=== PATIENT | female | born 1950 | race Caucasian/White ===

== ENCOUNTER 2017-02-28 15:48 | Inpatient (IN) | payer MEDICARE ==
[~2017-02-28] VITALS: Ht 152.4 cm; Wt 50.0 kg
[2017-02-28] VITALS (7 sets, daily range): BP systolic 112–122; BP diastolic 59–77; PULSE 84–98; RESP 12–18; TEMP 98.3–99; O2SAT 97–99
[~2017-02-28 15:48] MED LIST: LISI-360 PO; MECL25CH PO
[2017-02-28] MEDS ORDERED: SODIUM CHLOR 0.9% 1000 ML INJ 1,000 ML IV SCH (16:24)
[2017-02-28] MEDS ORDERED: PANTOPRAZOLE SODIUM 40 MG VIAL IVP ONE (16:30)
[2017-02-28] MEDS ORDERED: SODIUM CHLORIDE 0.9% FLUSH 10 ML FLUSH IVF PRN (16:30)
[2017-02-28] MEDS ORDERED: ONDANSETRON HCL 4 MG/2 ML VIAL IVP ONE (16:30)
[2017-02-28 16:42] LABS: AUTOMATED NEUTROPHIL # 9.8 TH/MM3 (1.8-7.7); BASOPHIL # 0.1 TH/MM3 (0-0.2); BASOPHIL % 0.7 % (0.0-2.0); EOSINOPHIL % 0.3 % (0.0-4.0); HEMATOCRIT 37.1 % (35.0-46.0); HEMO FLAGS DIFF FINAL; LYMPH % 19.7 % (9.0-44.0); LYMPHOCYTE # 2.6 TH/MM3 (1.0-4.8); MEAN CELL VOLUME 90.9 FL (80.0-100.0); MEAN CORPUSCULAR HEMOGLOBIN 29.8 PG (27.0-34.0); MEAN CORPUSCULAR HGB CONC 32.8 % (32.0-36.0); MONO % 4.5 % (0.0-8.0); NEUT % 74.8 % (16.0-70.0); PLATELET COUNT 284 TH/MM3 (150-450); RED BLOOD COUNT 4.08 MIL/MM3 (4.00-5.30); RED CELL DISTRIBUTION WIDTH 12.3 % (11.6-17.2); WHITE BLOOD COUNT 13.1 TH/MM3 (4.0-11.0)
[2017-02-28 16:50] LABS: CHLORIDE 104 MEQ/L (98-107); POTASSIUM 3.9 MEQ/L (3.5-5.1); SODIUM (NA) 140 MEQ/L (136-145)
[2017-02-28 16:54] LABS: ANION GAP 8 MEQ/L (5-15); BICARBONATE 28.1 MEQ/L (21.0-32.0); BLOOD UREA NITROGEN 37 MG/DL (7-18); PROTHROMBIN TIME - PATIENT 10.8 SEC (9.8-11.6)
[2017-02-28 16:57] LABS: ALT (GPT) 27 U/L (10-53); AST (GOT) 16 U/L (15-37); GLOMERULAR FILTRATION RATE 93 ML/MIN (>89)
[2017-02-28 16:58] LABS: TOTAL BILIRUBIN ADULT 0.2 MG/DL (0.2-1.0)
[2017-02-28 17:00] LABS: ALKALINE PHOSPHATASE 69 U/L (45-117)
[2017-02-28 17:03] LABS: BLOOD, URINE NEG (NEG); GLUCOSE,URINE NEG (NEG); KETONE, URINE NEG (NEG); NITRITE,URINE NEG (NEG); PH, URINE 5.5 (5.0-8.5)
[2017-02-28] MEDS ORDERED: LEVO50TA4 PO (17:19)
[2017-02-28] MEDS ORDERED: ASPI81CH CHEW (17:19)
[2017-02-28] MEDS ORDERED: LOSA25TA PO (17:19)
[2017-02-28] MEDS ORDERED: SIMV20TA PO (17:19)
[2017-02-28 17:22] LABS: COMMENT (UR) CULT NOT INDICATED; CULTURE IF INDICATED CULT NOT INDICATED; METHOD OF COLLECTION CLEAN CATCH; SQUAMOUS EPITHELIAL CELL URINE 0-5 /hpf (0-5); URINE COLOR YELLOW (YELLW/STRAW)
[2017-02-28 17:23] LABS: COMMENT2 (UR) MUCOUS PRESENT
[2017-02-28] MEDS ORDERED: IOHEXOL 350 MG/ML 10 ML VIAL (for RAD DIAG) IVCONTRAST ONE (17:29)
--- NOTE | 2017-02-28 17:43 | PD ---
HPI Chief Complaint: GI Complaint Time Seen by Provider: 16:17 Travel History International Travel<30 days: No Contact w/Intl Traveler<30days: [place] Traveled to: [place] Traveled to known affect area: No History of Present Illness HPI 66 yo F c/o epigastric abdominal pain and hematemesis. Vomiting x 3 this morning , clots of blood. + Hx gastric ulcers however has denies hx endoscopy. + Hx colonoscopy, reported to be normal. No bloody stool. Dizziness reported. No cp/ sob. + baby asa used daily. no anticoagulant otherwise. PFSH Past Medical History Hx Anticoagulant Therapy: No Cardiovascular Problems: Yes (HTN, CHOL) High Cholesterol: Yes Cerebrovascular Accident: Yes Hypertension: Yes Ulcer: Yes Tetanus Vaccination: < 5 Years Influenza Vaccination: Yes ?: Not Past Surgical History Hysterectomy: Yes Social History Alcohol Use: No Tobacco Use: No Substance Use: No Allergies-Medications (Allergen,Severity, Reaction): Coded Allergies: No Known Allergies (Unverified , 02/28/17) Reported Meds & Prescriptions Reported Meds & Active Scripts Active Reported Aspirin 81 Mg Chew 81 Mg CHEW DAILY Simvastatin 20 Mg Tab 20 Mg PO HS Levothyroxine (Levothyroxine Sodium) 50 Mcg Tab 50 Mcg PO DAILY Losartan (Losartan Potassium) 25 Mg Tab 12.5 Mg PO DAILY Review of Systems Except as stated in HPI: all other systems reviewed are Neg General / Constitutional: No: Fever HENT: No: Headaches, Vertigo Physical Exam Narrative GENERAL: 66 yo F, WNWD, NAD RECTAL: Guaiac negative clear mucous. No hemorrhoids. Hard stool in vault. SKIN: Warm and dry. HEAD: Atraumatic. Normocephalic. EYES: Pupils equal and round. No scleral icterus. No injection or drainage. ENT: No nasal bleeding or discharge. Mucous membranes pink and moist. NECK: Trachea midline. No JVD. CARDIOVASCULAR: Regular rate and rhythm. RESPIRATORY: No accessory muscle use. Clear to auscultation. Breath sounds equal bilaterally. GASTROINTESTINAL: Abdomen soft, non-tender, nondistended. Hepatic and splenic margins not palpable. MUSCULOSKELETAL: Extremities without clubbing, cyanosis, or edema. No obvious deformities. NEUROLOGICAL: Awake and alert. No obvious cranial nerve deficits. Motor grossly within normal limits. Five out of 5 muscle strength in the arms and legs. Normal speech. PSYCHIATRIC: Appropriate mood and affect; insight and judgment normal. Data Data Last Documented VS Vital Signs Date Time Temp Pulse Resp B/P (MAP) Pulse Ox O2 Delivery O2 Flow Rate FiO2 02/28/17 16:40 97 Room Air 02/28/17 15:56 98.3 98 16 122/70 (87) VS reviewed Orders Orders Complete Blood Count With Diff (02/28/17 16:24) Comprehensive Metabolic Panel (02/28/17 16:24) Lipase (02/28/17 16:24) Prothrombin Time / Inr (Pt) (02/28/17 16:24) Act Partial Throm Time (Ptt) (02/28/17 16:24) Urinalysis - C+S If Indicated (02/28/17 16:24) Type And Screen (02/28/17 16:24) Ecg Monitoring (02/28/17 16:24) Iv Access Insert/Monitor (02/28/17 16:24) Oximetry (02/28/17 16:24) Ondansetron Inj (Zofran Inj) (02/28/17 16:30) Pantoprazole Inj (Protonix Inj) (02/28/17 16:30) Sodium Chlor 0.9% 1000 Ml Inj (Ns 1000 M (02/28/17 16:24) Sodium Chloride 0.9% Flush (Ns Flush) (02/28/17 16:30) Ct Abd/Pel W Iv Contrast(Rout) (02/28/17 16:24) Iohexol 350 Inj (Omnipaque 350 Inj) (02/28/17 17:29) Admit Order (Ed Use Only) (02/28/17 ) [employer] / Telemetry PANCHITO.Q8H (02/28/17 17:51) Activity Oob With Assistance (02/28/17 17:51) Admit To Inpatient (02/28/17 ) Vital Signs (Adult) PANCHITO.Q4H (02/28/17 17:53) Activity Oob With Assistance (02/28/17 17:53) Supervisor [employer] / Telemetry PANCHITO.Q8H (02/28/17 17:53) Diet Npo (02/28/17 Dinner) Sodium Chlor 0.45% 1000 Ml Inj (1/2 Ns 1 (02/28/17 17:53) Sodium Chloride 0.9% Flush (Ns Flush) (02/28/17 18:00) Sodium Chloride 0.9% Flush (Ns Flush) (02/28/17 21:00) Inpatient Certification (02/28/17 ) Complete Blood Count With Diff (03/01/17 06:00) Scd&Teds Bilateral/Knee High PANCHITO.QSHIFT (02/28/17 17:56) Consult Gastroenterology (02/28/17 ) Labs Laboratory Tests Test 02/28/17 16:10 02/28/17 16:45 White Blood Count 13.1 TH/MM3 Red Blood Count 4.08 MIL/MM3 Hemoglobin 12.2 GM/DL Hematocrit 37.1 % Mean Corpuscular Volume 90.9 FL Mean Corpuscular Hemoglobin 29.8 PG Mean Corpuscular Hemoglobin Concent 32.8 % Red Cell Distribution Width 12.3 % Platelet Count 284 TH/MM3 Mean Platelet Volume 8.0 FL Neutrophils (%) (Auto) 74.8 % Lymphocytes (%) (Auto) 19.7 % Monocytes (%) (Auto) 4.5 % Eosinophils (%) (Auto) 0.3 % Basophils (%) (Auto) 0.7 % Neutrophils # (Auto) 9.8 TH/MM3 Lymphocytes # (Auto) 2.6 TH/MM3 Monocytes # (Auto) 0.6 TH/MM3 Eosinophils # (Auto) 0.0 TH/MM3 Basophils # (Auto) 0.1 TH/MM3 CBC Comment DIFF FINAL Differential Comment Prothrombin Time 10.8 SEC Prothromb Time International Ratio 1.0 RATIO Activated Partial Thromboplast Time 21.0 SEC Blood Urea Nitrogen 37 MG/DL Creatinine 0.64 MG/DL Random Glucose 136 MG/DL Total Protein 6.3 GM/DL Albumin 3.2 GM/DL Calcium Level 7.8 MG/DL Alkaline Phosphatase 69 U/L Aspartate Amino Transf (AST/SGOT) 16 U/L Alanine Aminotransferase (ALT/SGPT) 27 U/L Total Bilirubin 0.2 MG/DL Sodium Level 140 MEQ/L Potassium Level 3.9 MEQ/L Chloride Level 104 MEQ/L Carbon Dioxide Level 28.1 MEQ/L Anion Gap 8 MEQ/L Estimat Glomerular Filtration Rate 93 ML/MIN Lipase 183 U/L Urine Collection Type CLEAN CATCH Urine Color YELLOW Urine Turbidity CLEAR Urine pH 5.5 Urine Specific [place] 1.026 Urine Protein NEG mg/dL Urine Glucose (UA) NEG mg/dL Urine Ketones NEG mg/dL Urine Occult Blood NEG Urine Nitrite NEG Urine Bilirubin NEG Urine Leukocyte Esterase NEG Urine Squamous Epithelial Cells 0-5 /hpf Urine Amorphous Sediment FEW Microscopic Urinalysis Comment CULT NOT INDICATED Urine Collection Time 1645 [facility] Medical Decision Making Medical Screen Exam Complete: Yes Emergency Medical Condition: Yes Medical Record Reviewed: Yes Differential Diagnosis Gastritis, pancreatitis, appendicitis, acute cholecystitis, ascending cholangitis, AAA, perforated viscous, mesenteric ischemia, hepatitis, cystitis, hydronephrosis/hydroureter/nephroureter calculus, mesenteric adenitis, biliary colic Narrative Course CBC & BMP Diagram 02/28/17 16:10 Total Protein 6.3 L, Albumin 3.2 L, Calcium Level 7.8 L, Alkaline Phosphatase 69 , Aspartate Amino Transf (AST/SGOT) 16, Alanine Aminotransferase (ALT/SGPT) 27, Total Bilirubin 0.2 Lipase 183 UA: no UTI pt hemodynamically stable. BUN/Cr ratio concerning for upper GI bleed. protonix bolus and gtt CT ab / pel: no acute pathology d/w Dr Medina Diagnosis Primary Impression: Hematemesis Qualified Codes: K92.0 - Hematemesis Admitting Information Admitting Physician Requests: Observation Luca Palafox MD Feb 28, 2017 17:43
--- NOTE | 2017-02-28 17:47 | RADRPT ---
EXAM DATE/TIME: 02/28/2017 17:21 [place] COMPARISON: No previous studies available for comparison. INDICATIONS : Epigastric pain and hemoptysis. IV CONTRAST: 85 cc Omnipaque 350 (iohexol) IV ORAL CONTRAST: No oral contrast ingested. RADIATION DOSE: 4.93 CTDIvol (mGy) MEDICAL HISTORY : Cerebrovascular disease. Hypertension. SURGICAL HISTORY : Hysterectomy. ENCOUNTER: Initial ACUITY: 1 day PAIN SCALE: 4/10 LOCATION: upper quadrant TECHNIQUE: Volumetric scanning of the abdomen and pelvis was performed. Using automated exposure control and ad justment of the mA and/or kV according to patient size, radiation dose was kept as low as reasonably achievable to obtain optimal diagnostic quality images. DICOM format image data is available electro nically for review and comparison. FINDINGS: Examination of the lung bases demonstrates no abnormality. No pleural fluid is identified. No pulmona ry nodules are present. The liver and spleen are normal in size and no focal defects are identified. The gallbladder and pancreas are unremarkable. No intrahepatic or extrahepatic ductal dilatation is s een. The adrenal glands are unremarkable. The right kidney is unremarkable. There is a single simple cyst in the left kidney measuring 2.5 cm in the upper pole. Examination of the pelvis demonstrates no evidence of free fluid or pelvic mass. No abnormally enlarg ed inguinal or retroperitoneal lymph nodes are present. The bladder is unremarkable. Examination of t he right lower quadrant demonstrates no abnormality. The appendix is identified and appears normal. Bilateral pars defects are present at L5. CONCLUSION: 1. No evidence of acute abdominal or pelvic process. No masses are identified. 2. Bilateral L5 spondylolysis Jt Borrego MD on February 28, 2017 at 17:42 Board Certified Radiologist. This report was verified electronically.
[2017-02-28] MEDS ORDERED: SODIUM CHLOR 0.45% 1000 ML INJ 1,000 ML IV SCH (17:53)
[2017-02-28] MEDS ORDERED: SODIUM CHLORIDE 0.9% FLUSH 10 ML FLUSH IV FLUSH PRN (18:00)
[2017-02-28] MEDS ORDERED: ONDANSETRON HCL 4 MG/2 ML VIAL IV PUSH PRN (18:45)
--- NOTE | 2017-02-28 18:49 | HHI.HP ---
[facility] Diagnosis Hematemesis; Abdominal Pain Diagnoses: (1) Hematemesis Diagnosis: Principal Chief Complaint: Vomiting blood Travel History International Travel<30 Days: No Contact w/Intl Traveler <30 Da: [place] Traveled to: [place] Traveled to Known Affected Are: No History of Present Illness Written by Alvarado Elizalde, acting as scribe for Dr. Medina on 02/28/17 at 18:45. 66-year-old female with known history of hypertension, hyperlipidemia, history CVA 2, hypothyroidism who presented to the hospital because acute hematemesis. Patient was in her normal state of health until this morning when she had a severe headache, at 1045 she took an aspirin at that time and then shortly after that she started vomiting at 11 AM. When she vomited they noticed that there was a significant amount of blood in the vomitus. She had a total of 3 episodes of hematemesis. Patient indicates that she has never had this before. She did not take any medication to make it better. She states that she did develop some abdominal pain prior to the vomiting which was 6/10 on a pain scale. Pain partially subsided after emesis. At the present time she has very little abdominal pain. She did have some fatigue and diaphoresis. However she denied any fever, chest pain, shortness of breath, palpitations, she has had normal bowel movements every other day. She does not know the color of it because she does not look. Patient had evaluation done emergency department. Hemoglobin is 12.2. Mild leukocytosis. CT scan was unremarkable for any acute abdominal or pelvic process. Because of hematemesis and was recommended by the ER physician the patient be observed for further evaluation management Review of Systems Gastrointestinal: COMPLAINS OF: Nausea, Vomiting Neurologic: COMPLAINS OF: Headache Except as stated in HPI: all other systems reviewed are Neg Past Family Social History Past Medical History Hypertension Hyponatremia Hypothyroidism History CVA 2 Past Surgical History Colonoscopy 2 years ago Hysterectomy Reported Medications Reported Meds & Active Scripts Active Reported Aspirin 81 Mg Chew 81 Mg CHEW DAILY Simvastatin 20 Mg Tab 20 Mg PO HS Levothyroxine (Levothyroxine Sodium) 50 Mcg Tab 50 Mcg PO DAILY Losartan (Losartan Potassium) 25 Mg Tab 12.5 Mg PO DAILY Allergies: Coded Allergies: No Known Allergies (Unverified , 02/28/17) Family History Reviewed is significant for brother with heart disease Social History Patient quit smoking 17 years ago. She started smoking at age 14. She denies any alcohol or illicit drugs Physical Exam Vital Signs Vital Signs Date Time Temp Pulse Resp B/P (MAP) Pulse Ox O2 Delivery O2 Flow Rate FiO2 02/28/17 17:45 86 18 119/59 (79) 99 Room Air 02/28/17 16:40 97 Room Air 02/28/17 15:56 98.3 98 16 122/70 (87) 99 Physical Exam GENERAL: Well-developed, well-nourished, in no acute distress. alert and orientated HEENT: Head is normocephalic without any lesions or masses noted. Facial features are symmetric. Eyes: Pupils equal round reactive to light. Extraocular muscles are intact. Conjunctivae were clear. Oropharyngeal: Pharynx without any erythema edema. Tongue is midline without deviation. Buccal mucosa is moist without any masses or lesions NECK: No JVD, no bruits are appreciated CARDIAC: Regular rhythm, regular rate. S1/S2 are heard. No murmurs gallops or rubs. LUNGS: Clear to auscultation bilaterally. No wheeze, rhonchi or rales. No use of accessory muscles on inspiration or expiration. ABDOMEN: Soft, epigastric tenderness. Nondistended. Bowel sounds heard in all 4 quadrants. No organomegaly or masses. Negative rebound, negative guarding EXTREMITIES: No edema, pulses are equal bilaterally. No cyanosis or clubbing NEUROLOGY: No facial droop, no slurred speech. Muscle strength 5/5 in upper extremities bilaterally. 5/5 strength in the left lower extremity, 4/5 strength in the right lower extremity. Psychiatry: Mood and affect appear appropriate. Laboratory Laboratory Tests Test 02/28/17 16:10 02/28/17 16:45 White Blood Count 13.1 Red Blood Count 4.08 Hemoglobin 12.2 Hematocrit 37.1 Mean Corpuscular Volume 90.9 Mean Corpuscular Hemoglobin 29.8 Mean Corpuscular Hemoglobin Concent 32.8 Red Cell Distribution Width 12.3 Platelet Count 284 Mean Platelet Volume 8.0 Neutrophils (%) (Auto) 74.8 Lymphocytes (%) (Auto) 19.7 Monocytes (%) (Auto) 4.5 Eosinophils (%) (Auto) 0.3 Basophils (%) (Auto) 0.7 Neutrophils # (Auto) 9.8 Lymphocytes # (Auto) 2.6 Monocytes # (Auto) 0.6 Eosinophils # (Auto) 0.0 Basophils # (Auto) 0.1 CBC Comment DIFF FINAL Differential Comment Prothrombin Time 10.8 Prothromb Time International Ratio 1.0 Activated Partial Thromboplast Time 21.0 Blood Urea Nitrogen 37 Creatinine 0.64 Random Glucose 136 Total Protein 6.3 Albumin 3.2 Calcium Level 7.8 Alkaline Phosphatase 69 Aspartate Amino Transf (AST/SGOT) 16 Alanine Aminotransferase (ALT/SGPT) 27 Total Bilirubin 0.2 Sodium Level 140 Potassium Level 3.9 Chloride Level 104 Carbon Dioxide Level 28.1 Anion Gap 8 Estimat Glomerular Filtration Rate 93 Lipase 183 Urine Collection Type CLEAN CATCH Urine Color YELLOW Urine Turbidity CLEAR Urine pH 5.5 Urine Specific [place] 1.026 Urine Protein NEG Urine Glucose (UA) NEG Urine Ketones NEG Urine Occult Blood NEG Urine Nitrite NEG Urine Bilirubin NEG Urine Leukocyte Esterase NEG Urine Squamous Epithelial Cells 0-5 Urine Amorphous Sediment FEW Microscopic Urinalysis Comment CULT NOT INDICATED Urine Collection Time 1645 Result Diagram: 02/28/17 1610 02/28/17 1610 Caprini VTE Risk Assessment Caprini VTE Risk Assessment: Mod/High Risk (score >= 2) VTE Pharm Contraindication: Active bleeding Caprini Risk Assessment Model Point Value = 1 Point Value = 2 Point Value = 3 Point Value = 5 Age 41-60 Minor surgery BMI > 25 kg/m2 Swollen legs Varicose veins or History of unexplained or recurrent spontaneous Oral contraceptives or hormone replacement Sepsis (< 1 month) Serious lung disease, including pneumonia (< 1 month) Abnormal pulmonary function Acute myocardial infarction Congestive heart failure (< 1 month) History of inflammatory bowel disease Medical patient at bed rest Age 61-74 Arthroscopic surgery Major open surgery (> 45 min) Laparoscopic surgery (> 45 min) Malignancy Confined to bed (> 72 hours) Immobilizing plaster cast Central venous access Age >= 75 History of VTE Family history of VTE Factor V Leiden Prothrombin [id number] Lupus anticoagulant Anticardiolipin antibodies Elevated serum homocysteine Heparin-induced thrombocytopenia Other congenital or acquired thrombophilia Stroke (< 1 month) Elective arthroplasty Hip, pelvis, or leg fracture Acute spinal cord injury (< 1 month) Prophylaxis Regimen Total Risk Factor Score Risk Level Prophylaxis Regimen 0-1 Low Early ambulation 2 Moderate Order ONE of the following: *Sequential Compression Device (SCD) *Heparin 5000 units SQ BID 3-4 Higher Order ONE of the following medications: *Heparin 5000 units SQ TID *Enoxaparin/Lovenox 40 mg SQ daily (WT < 150 kg, CrCl > 30 mL/min) *Enoxaparin/Lovenox 30 mg SQ daily (WT < 150 kg, CrCl > 10-29 mL/min) *Enoxaparin/Lovenox 30 mg SQ BID (WT < 150 kg, CrCl > 30 mL/min) AND/OR *Sequential Compression Device (SCD) 5 or more Highest Order ONE of the following medications: *Heparin 5000 units SQ TID (Preferred with Epidurals) *Enoxaparin/Lovenox 40 mg SQ daily (WT < 150 kg, CrCl > 30 mL/min) *Enoxaparin/Lovenox 30 mg SQ daily (WT < 150 kg, CrCl > 10-29 mL/min) *Enoxaparin/Lovenox 30 mg SQ BID (WT < 150 kg, CrCl > 30 mL/min) AND *Sequential Compression Device (SCD) Assessment and Plan Assessment and Plan Upper GI bleed with hematemesis Continue Protonix IV Continue monitor hemoglobin and hematocrit, transfuse if hemoglobin below 8.0 Consult GI for upper endoscopy Continue clear liquid diet, nothing by mouth after midnight anticipate endoscopy tomorrow morning Headache - seems isolated and currently subsided; if recurs in severity, will need to CT head to r/o bleed given close proximity to vomiting in hx. Hypertension, hyperlipidemia, history of CVA Continue home medication - will transition to high intensity statin and to resume aspirin once cleared by GI or sometime after discharge pending GI stability. Epigastric TTP - likely 2/2 vomiting, monitor - LFTs neg. DVT prevention Sequential compression devices given gi bleed. This note was transcribed by dolores Elizalde. I, Po Medina, personally performed the history, physical exam, and medical decision making; and confirmed the accuracy of information in the transcribed note. Authenticated by Po Medina at 7 PM on 02/28/17. I independently reviewed the CT scan and note mild to moderate constipation or stool retention. Problem Qualifiers (1) Hematemesis: Qualified Codes: K92.0 - Hematemesis Alvarado Elizalde Feb 28, 2017 18:49 Po Medina MD Feb 28, 2017 21:54
[2017-02-28] MEDS ORDERED: PILL SPLITTER OTHER PRN (19:30)
[2017-02-28] MEDS: PRAVASTATIN SOD 40 MG TAB PO SCH (21:00)
[2017-02-28] MEDS: SODIUM CHLORIDE 0.9% FLUSH 10 ML FLUSH IV FLUSH SCH (21:00)
[2017-02-28] MEDS ORDERED: ACETAMINOPHEN/CODEINE 300 MG/30 MG TAB PO PRN (22:00)
[2017-03-01] VITALS (7 sets, daily range): BP systolic 97–151; BP diastolic 53–79; PULSE 76–97; RESP 16–20; TEMP 96–99.9; O2SAT 98–100
[2017-03-01 05:54] LABS: AUTOMATED NEUTROPHIL # 5.3 TH/MM3 (1.8-7.7); BASOPHIL # 0.1 TH/MM3 (0-0.2); BASOPHIL % 0.6 % (0.0-2.0); EOSINOPHIL # 0.1 TH/MM3 (0-0.4); EOSINOPHIL % 0.6 % (0.0-4.0); HEMATOCRIT 30.8 % (35.0-46.0); HEMO FLAGS DIFF FINAL; LYMPH % 36.6 % (9.0-44.0); LYMPHOCYTE # 3.4 TH/MM3 (1.0-4.8); MEAN CELL VOLUME 92.2 FL (80.0-100.0); MEAN CORPUSCULAR HEMOGLOBIN 30.7 PG (27.0-34.0); MEAN CORPUSCULAR HGB CONC 33.3 % (32.0-36.0); MONO % 4.3 % (0.0-8.0); NEUT % 57.9 % (16.0-70.0); PLATELET COUNT 266 TH/MM3 (150-450); RED BLOOD COUNT 3.34 MIL/MM3 (4.00-5.30); RED CELL DISTRIBUTION WIDTH 12.7 % (11.6-17.2); WHITE BLOOD COUNT 9.3 TH/MM3 (4.0-11.0)
[2017-03-01] MEDS ORDERED: PANTOPRAZOLE SODIUM 40 MG VIAL IV PUSH SCH (06:00)
[2017-03-01] MEDS: PANTOPRAZOLE SODIUM 40 MG VIAL IV PUSH SCH ×2 (10:09→21:19)
[2017-03-01] MEDS: SODIUM CHLORIDE 0.9% FLUSH 10 ML FLUSH IV FLUSH SCH ×2 (10:09→21:00)
[2017-03-01] MEDS: LEVOTHYROXINE SODIUM 50 MCG TAB PO SCH (10:10)
[2017-03-01] MEDS: LOSARTAN 25 MG TAB PO SCH (10:10)
[2017-03-01] MEDS: SODIUM CHLOR 0.45% 1000 ML INJ 1,000 ML IV SCH ×2 (10:12→21:20)
[2017-03-01 11:07] LABS: CHLORIDE 106 MEQ/L (98-107); POTASSIUM 3.9 MEQ/L (3.5-5.1); SODIUM (NA) 142 MEQ/L (136-145)
[2017-03-01 11:11] LABS: ANION GAP 5 MEQ/L (5-15); BICARBONATE 30.6 MEQ/L (21.0-32.0); BLOOD UREA NITROGEN 29 MG/DL (7-18)
[2017-03-01 11:14] LABS: ALT (GPT) 20 U/L (10-53); AST (GOT) 14 U/L (15-37)
[2017-03-01 11:15] LABS: GLOMERULAR FILTRATION RATE 113 ML/MIN (>89)
[2017-03-01 11:16] LABS: TOTAL BILIRUBIN ADULT 0.2 MG/DL (0.2-1.0)
[2017-03-01 11:17] LABS: ALKALINE PHOSPHATASE 53 U/L (45-117)
[2017-03-01] MEDS ORDERED: ATOR40TA16 PO (13:55)
--- NOTE | 2017-03-01 14:40 | PD.PROCEDR ---
GI Procedure REFERRING PHYSICIAN [place] PROCEDURE PERFORMED EGD with cautery and epinephrine injection INDICATION FOR PROCEDURE Hematemesis PROCEDURE: The procedure, risks and benefits were discussed with Ms. Coughlin and informed consent was obtained. Anesthesia sedated her with Diprivan. She was placed in the left lateral decubitus position. EGD: The Pentax videoscope was introduced through the oropharynx and advanced to the second portion of the duodenum under direct visualization. Retroflexion was performed in the stomach. FINDINGS: The esophagus this was normal The stomach this too was normal The duodenum there was a bleeding ulcer in the duodenal sweep this was a small superficial ulcer with a visible vessel this was cauterized and 5 cc of epinephrine were injected locally no further bleeding was noted otherwise the duodenum was unremarkable ESTIMATED BLOOD LOSS: About 20 cc SPECIMENS REMOVED: None COMPLICATIONS: None IMPRESSION: Bleeding duodenal ulcer PLAN: Clear liquid diet Monitor labs and transfuse as needed Continue with PPI Jimmy Jones MD Mar 01, 2017 14:40
[2017-03-01] MEDS ORDERED: PROPOFOL 200 MG/20 ML AMP IV ONE (14:47)
[2017-03-01] MEDS ORDERED: EPINEPHrine HCL (1:10,000) 1 MG/10 ML SYRINGE OTHER ONE (14:49)
--- NOTE | 2017-03-01 14:50 | PD.CONS ---
HPI History of Present Illness This is a 66 year old female who presents with complaints of hematemesis patient denies any abdominal pain does report having taken an aspirin earlier today and shortly after taking the aspirin she vomited up some fresh-looking blood no prior history. She did have some fatigue and diaphoresis. but she denied any fever, chest pain, shortness of breath, palpitations, she also denied any melena or hematochezia PFSH Past Medical History Hypertension Hyponatremia Hypothyroidism History CVA 2 Past Surgical History Colonoscopy 2 years ago Hysterectomy Coded Allergies: No Known Allergies (Unverified , 02/28/17) Medications Current Medications Ondansetron HCl (Zofran Inj) 4 mg ONCE ONCE IVP Last administered on 16:48; Start 02/28/17 at 16:30; Stop 02/28/17 at 16:31; Status DC Pantoprazole Sodium (Protonix Inj) 40 mg ONCE ONCE IVP Last administered on 16:49; Start 02/28/17 at 16:30; Stop 02/28/17 at 16:31; Status DC Sodium Chloride 1,000 ml @ 1,000 mls/hr Q1H IV Last administered on 16:24; Start 02/28/17 at 16:24; Stop 02/28/17 at 17:23; Status DC Sodium Chloride (NS Flush) 2 ml UNSCH PRN IVF FLUSH AFTER USING IV ACCESS; Start 02/28/17 at 16:30 Iohexol (Omnipaque 350 Inj) 85 ml STK-MED ONCE IVCONTRAST Last administered on 02/28/17 17:29; Start 02/28/17 at 17:29; Stop 02/28/17 at 17:30; Status DC Sodium Chloride 1,000 ml @ 75 mls/hr [id number] IV Last administered on 18:46; Start 02/28/17 at 17:53; Stop 03/01/17 at 01:12; Status DC Sodium Chloride (NS Flush) 2 ml UNSCH PRN IV FLUSH FLUSH AFTER USING IV ACCESS ; Start 02/28/17 at 18:00 Sodium Chloride (NS Flush) 2 ml BID IV FLUSH Last administered on 03/01/17 10 :09; Start 02/28/17 at 21:00 Pantoprazole Sodium (Protonix Inj) 40 mg Q12H IV PUSH ; Start 03/01/17 at 06:00 ; Stop 03/01/17 at 06:00; Status DC Ondansetron HCl (Zofran Inj) 4 mg Q6HR PRN IV PUSH nasuea; Start 02/28/17 at 18:45 Levothyroxine Sodium (Synthroid) 50 mcg DAILY PO Last administered on 10:10; Start 03/01/17 at 09:00 Losartan Potassium (Cozaar) 12.5 mg DAILY PO Last administered on 03/01/17 10 :10; Start 03/01/17 at 09:00 Pravastatin Sodium (Pravachol) 40 mg HS PO ; Start 02/28/17 at 21:00 Miscellaneous (Pill Splitter) 1 ea UNSCH PRN OTHER SEE LABEL COMMENTS; Start 02/28/17 at 19:30 Acetaminophen/ Codeine Phosphate (Tylenol-Codeine #3) 2 tab Q6H PRN PO pain 3-5 ; Start 02/28/17 at 22:00 Pantoprazole Sodium (Protonix Inj) 40 mg Q12H IV PUSH Last administered on 10:09; Start 03/01/17 at 09:00 Sodium Chloride 1,000 ml @ 75 mls/hr [id number] IV Last administered on 10:12; Start 03/01/17 at 09:00 Atorvastatin Calcium (Lipitor) 40 mg HS PO ; Start 03/01/17 at 21:00 Family History Reviewed is significant for brother with heart disease Social History Patient quit smoking 17 years ago. She denies any alcohol or illicit drugs Review of Systems ROS Review of systems Patient denies any headache dizziness blurry vision, denies any chest pain shortness of breath cough fever chills, Denies any palpitations or fatigue denies any polyuria dysuria hematuria, denies any numbness tingling or weakness, denies any skin rash pruritus or jaundice, denies any easy bruising or bleeding tendency, denies any recent change in mood GI Exam Vitals I&O Vital Signs Date Time Temp Pulse Resp B/P (MAP) Pulse Ox O2 Delivery O2 Flow Rate FiO2 03/01/17 13:29 98.3 86 20 113/64 (80) 100 03/01/17 12:00 98.5 87 16 97/55 (69) 98 03/01/17 08:00 97.6 82 18 118/69 (85) 100 03/01/17 04:31 97.4 78 18 119/68 (85) 98 03/01/17 00:10 96.0 91 18 151/79 (103) 100 02/28/17 22:23 90 02/28/17 22:10 99.0 85 12 116/70 (85) 97 02/28/17 21:40 77 18 97 02/28/17 20:35 84 18 118/72 (87) 98 Room Air 02/28/17 18:44 86 18 112/77 (89) 99 Room Air 02/28/17 17:45 86 18 119/59 (79) 99 Room Air 02/28/17 16:40 97 Room Air 02/28/17 15:56 98.3 98 16 122/70 (87) 99 I/O 02/28/17 02/28/17 02/28/17 03/01/17 03/01/17 03/01/17 07:00 15:00 23:00 07:00 15:00 23:00 Intake Total 1000 ml Balance 1000 ml Intake IV Total 1000 ml # Voids 1 Imaging Last Impressions Abdomen/Pelvis CT 02/28/17 1624 Signed Impressions: Service Date/Time: Tuesday, February 28, 2017 17:21 - CONCLUSION: 1. No evidence of acute abdominal or pelvic process. No masses are identified. 2. Bilateral L5 spondylolysis Jt Borrego MD Laboratory Test 02/28/17 16:10 02/28/17 16:45 03/01/17 05:10 White Blood Count 13.1 TH/MM3 9.3 TH/MM3 Red Blood Count 4.08 MIL/MM3 3.34 MIL/MM3 Hemoglobin 12.2 GM/DL 10.3 GM/DL Hematocrit 37.1 % 30.8 % Mean Corpuscular Volume 90.9 FL 92.2 FL Mean Corpuscular Hemoglobin 29.8 PG 30.7 PG Mean Corpuscular Hemoglobin Concent 32.8 % 33.3 % Red Cell Distribution Width 12.3 % 12.7 % Platelet Count 284 TH/MM3 266 TH/MM3 Mean Platelet Volume 8.0 FL 8.3 FL Neutrophils (%) (Auto) 74.8 % 57.9 % Lymphocytes (%) (Auto) 19.7 % 36.6 % Monocytes (%) (Auto) 4.5 % 4.3 % Eosinophils (%) (Auto) 0.3 % 0.6 % Basophils (%) (Auto) 0.7 % 0.6 % Neutrophils # (Auto) 9.8 TH/MM3 5.3 TH/MM3 Lymphocytes # (Auto) 2.6 TH/MM3 3.4 TH/MM3 Monocytes # (Auto) 0.6 TH/MM3 0.4 TH/MM3 Eosinophils # (Auto) 0.0 TH/MM3 0.1 TH/MM3 Basophils # (Auto) 0.1 TH/MM3 0.1 TH/MM3 CBC Comment DIFF FINAL DIFF FINAL Differential Comment Prothrombin Time 10.8 SEC Prothromb Time International Ratio 1.0 RATIO Activated Partial Thromboplast Time 21.0 SEC Blood Urea Nitrogen 37 MG/DL 29 MG/DL Creatinine 0.64 MG/DL 0.54 MG/DL Random Glucose 136 MG/DL 92 MG/DL Total Protein 6.3 GM/DL 5.6 GM/DL Albumin 3.2 GM/DL 3.0 GM/DL Calcium Level 7.8 MG/DL 8.1 MG/DL Alkaline Phosphatase 69 U/L 53 U/L Aspartate Amino Transf (AST/SGOT) 16 U/L 14 U/L Alanine Aminotransferase (ALT/SGPT) 27 U/L 20 U/L Total Bilirubin 0.2 MG/DL 0.2 MG/DL Sodium Level 140 MEQ/L 142 MEQ/L Potassium Level 3.9 MEQ/L 3.9 MEQ/L Chloride Level 104 MEQ/L 106 MEQ/L Carbon Dioxide Level 28.1 MEQ/L 30.6 MEQ/L Anion Gap 8 MEQ/L 5 MEQ/L Estimat Glomerular Filtration Rate 93 ML/MIN 113 ML/MIN Lipase 183 U/L Urine Collection Type CLEAN CATCH Urine Color YELLOW Urine Turbidity CLEAR Urine pH 5.5 Urine Specific [place] 1.026 Urine Protein NEG mg/dL Urine Glucose (UA) NEG mg/dL Urine Ketones NEG mg/dL Urine Occult Blood NEG Urine Nitrite NEG Urine Bilirubin NEG Urine Leukocyte Esterase NEG Urine Squamous Epithelial Cells 0-5 /hpf Urine Amorphous Sediment FEW Microscopic Urinalysis Comment CULT NOT INDICATED Urine Collection Time 1645 Physical Examination HEENT: Pupils round and reactive to light; normocephalic; atraumatic; no jaundice. Throat is clear. NECK: Neck is supple, no JVD, no lymphadenopathy. CHEST: Chest is clear to auscultation and percussion. CARDIAC: Regular rate and rhythm with no murmur gallop or rubs. ABDOMEN: Soft, nondistended, nontender; no hepatosplenomegaly; bowel sounds are present in all four quadrants. EXTREMITIES: No clubbing, cyanosis, or edema. SKIN: Normal; no rash; no jaundice. FACILITIES MAINTENANCE TECHNICIAN: No focal deficits; alert and oriented times three. Assessment and Plan Plan Patient presenting with hematemesis Stable hemodynamically We will need to proceed with an EGD Further recommendations shall depend on findings I do agree with current supportive care Monitor labs and transfuse as needed Jimmy Jones MD Mar 01, 2017 14:50
[2017-03-01] MEDS: PRAVASTATIN SOD 40 MG TAB PO SCH (21:18)
[2017-03-01] MEDS: ATORVASTATIN 40 MG TAB PO SCH (21:18)
[2017-03-02] VITALS (8 sets, daily range): BP systolic 98–139; BP diastolic 50–70; PULSE 60–105; RESP 18–20; TEMP 96–99.1; O2SAT 92–100
[2017-03-02 06:22] LABS: HEMATOCRIT 24.6 % (35.0-46.0); MEAN CELL VOLUME 91.7 FL (80.0-100.0); MEAN CORPUSCULAR HEMOGLOBIN 29.5 PG (27.0-34.0); MEAN CORPUSCULAR HGB CONC 32.2 % (32.0-36.0); PLATELET COUNT 252 TH/MM3 (150-450); RED BLOOD COUNT 2.68 MIL/MM3 (4.00-5.30); RED CELL DISTRIBUTION WIDTH 12.6 % (11.6-17.2); REVIEW FLAG FINAL; WHITE BLOOD COUNT 6.6 TH/MM3 (4.0-11.0)
[2017-03-02] MEDS: SODIUM CHLORIDE 0.9% FLUSH 10 ML FLUSH IV FLUSH SCH ×2 (08:31→19:43)
[2017-03-02] MEDS: LOSARTAN 25 MG TAB PO SCH (08:31)
[2017-03-02] MEDS: PANTOPRAZOLE SODIUM 40 MG VIAL IV PUSH SCH ×2 (08:34→19:43)
[2017-03-02] MEDS: LEVOTHYROXINE SODIUM 50 MCG TAB PO SCH (08:34)
--- NOTE | 2017-03-02 10:19 | HHI.PR ---
Subjective Remarks LATE ENTRY for 03/01/17 - PT seen ~ 9:30 AM Nursing reports no acute deterioration since last night. Patient denies having any further emesis or abdominal pain. No diarrhea. Objective Vital Signs Date Time Temp Pulse Resp B/P (MAP) Pulse Ox O2 Delivery O2 Flow Rate FiO2 03/02/17 08:00 97.8 88 20 98/50 (66) 03/02/17 04:00 96.0 90 20 113/66 (82) 99 03/02/17 00:00 99.1 105 20 106/66 (79) 100 03/01/17 20:00 99.9 96 20 111/53 (72) 99 03/01/17 20:00 94 03/01/17 16:00 99.6 97 16 105/56 (72) 98 03/01/17 15:04 98.4 95 16 145/70 (95) 100 03/01/17 14:41 98.4 98 16 148/77 (100) 100 03/01/17 13:29 98.3 86 20 113/64 (80) 100 03/01/17 12:00 98.5 87 16 97/55 (69) 98 I/O 03/01/17 03/01/17 03/01/17 03/02/17 03/02/17 03/02/17 07:00 15:00 23:00 07:00 15:00 23:00 Intake Total 1100 ml 1000 ml 1150 ml Balance 1100 ml 1000 ml 1150 ml Intake Oral 0 ml IV Total 500 ml 1000 ml 1150 ml Other 600 ml # Voids 1 4 Result Diagram: 03/02/17 0548 03/01/17 0510 Objective Remarks Abdomen soft, nontender, nondistended, positive bowel sounds Awake, alert, lying in bed, no acute distress A/P Assessment and Plan hematemesis -Continue Protonix IV -Continue monitor hemoglobin and hematocrit, transfuse if hemoglobin below 8.0. h/h shows mild drop from 12-10 possibly dilutional but will trend. -Discussed with GI - endoscopy planned for later today at 3 PM Hypertension, hyperlipidemia, history of CVA -Continue home medication - will transition to high intensity statin and to resume aspirin once cleared by GI or sometime after discharge pending GI stability. Epigastric TTP - likely 2/2 vomiting, monitor - LFTs neg. DVT prevention Sequential compression devices given gi bleed. Po Medina MD Mar 02, 2017 10:19
--- NOTE | 2017-03-02 16:09 | HHI.GIFU ---
GI Follow-up Note Consult Follow-up Subjective: Patient laying in bed comfortably, no new complaints except asking for food. No bleeding reported. Objective: PHYSICAL EXAMINATION: Vitals signs stable No fever HEENT: Pupils round and reactive to light; normocephalic; atraumatic; no jaundice. Throat is clear. NECK: Neck is supple, no JVD, no lymphadenopathy. CHEST: Chest is clear to auscultation and percussion. CARDIAC: Regular rate and rhythm with no murmur gallop or rubs. ABDOMEN: Soft, nondistended, nontender; no hepatosplenomegaly; bowel sounds are present in all four quadrants. EXTREMITIES: No clubbing, cyanosis, or edema. SKIN: Normal; no rash; no jaundice. DIRECTOR SUPPLY CHAIN: No focal deficits; alert and oriented times three. Available Data (labs, X- Rays, Procedues) : Last Impressions Abdomen/Pelvis CT 02/28/17 1624 Signed Impressions: Service Date/Time: Tuesday, February 28, 2017 17:21 - CONCLUSION: 1. No evidence of acute abdominal or pelvic process. No masses are identified. 2. Bilateral L5 spondylolysis Jt Borrego MD Laboratory Tests Test 02/28/17 16:10 02/28/17 16:45 03/01/17 05:10 03/02/17 05:48 White Blood Count 13.1 TH/MM3 9.3 TH/MM3 6.6 TH/MM3 Red Blood Count 4.08 MIL/MM3 3.34 MIL/MM3 2.68 MIL/MM3 Hemoglobin 12.2 GM/DL 10.3 GM/DL 7.9 GM/DL Hematocrit 37.1 % 30.8 % 24.6 % Mean Corpuscular Volume 90.9 FL 92.2 FL 91.7 FL Mean Corpuscular Hemoglobin 29.8 PG 30.7 PG 29.5 PG Mean Corpuscular Hemoglobin Concent 32.8 % 33.3 % 32.2 % Red Cell Distribution Width 12.3 % 12.7 % 12.6 % Platelet Count 284 TH/MM3 266 TH/MM3 252 TH/MM3 Mean Platelet Volume 8.0 FL 8.3 FL 8.2 FL Neutrophils (%) (Auto) 74.8 % 57.9 % Lymphocytes (%) (Auto) 19.7 % 36.6 % Monocytes (%) (Auto) 4.5 % 4.3 % Eosinophils (%) (Auto) 0.3 % 0.6 % Basophils (%) (Auto) 0.7 % 0.6 % Neutrophils # (Auto) 9.8 TH/MM3 5.3 TH/MM3 Lymphocytes # (Auto) 2.6 TH/MM3 3.4 TH/MM3 Monocytes # (Auto) 0.6 TH/MM3 0.4 TH/MM3 Eosinophils # (Auto) 0.0 TH/MM3 0.1 TH/MM3 Basophils # (Auto) 0.1 TH/MM3 0.1 TH/MM3 CBC Comment DIFF FINAL DIFF FINAL Differential Comment Prothrombin Time 10.8 SEC Prothromb Time International Ratio 1.0 RATIO Activated Partial Thromboplast Time 21.0 SEC Blood Urea Nitrogen 37 MG/DL 29 MG/DL Creatinine 0.64 MG/DL 0.54 MG/DL Random Glucose 136 MG/DL 92 MG/DL Total Protein 6.3 GM/DL 5.6 GM/DL Albumin 3.2 GM/DL 3.0 GM/DL Calcium Level 7.8 MG/DL 8.1 MG/DL Alkaline Phosphatase 69 U/L 53 U/L Aspartate Amino Transf (AST/SGOT) 16 U/L 14 U/L Alanine Aminotransferase (ALT/SGPT) 27 U/L 20 U/L Total Bilirubin 0.2 MG/DL 0.2 MG/DL Sodium Level 140 MEQ/L 142 MEQ/L Potassium Level 3.9 MEQ/L 3.9 MEQ/L Chloride Level 104 MEQ/L 106 MEQ/L Carbon Dioxide Level 28.1 MEQ/L 30.6 MEQ/L Anion Gap 8 MEQ/L 5 MEQ/L Estimat Glomerular Filtration Rate 93 ML/MIN 113 ML/MIN Lipase 183 U/L Urine Collection Type CLEAN CATCH Urine Color YELLOW Urine Turbidity CLEAR Urine pH 5.5 Urine Specific [place] 1.026 Urine Protein NEG mg/dL Urine Glucose (UA) NEG mg/dL Urine Ketones NEG mg/dL Urine Occult Blood NEG Urine Nitrite NEG Urine Bilirubin NEG Urine Leukocyte Esterase NEG Urine Squamous Epithelial Cells 0-5 /hpf Urine Amorphous Sediment FEW Microscopic Urinalysis Comment CULT NOT INDICATED Urine Collection Time 1645 Test 03/02/17 12:20 Hemoglobin 8.9 GM/DL Allergies Coded Allergies Type Severity Reaction Last Updated Verified No Known Allergies 02/28/17 No Active Scripts Medications Dose Route/Sig Max Daily Dose Days Date Category Atorvastatin (Atorvastatin Calcium) 40 Mg Tab 40 Mg PO HS 03/01/17 Rx Aspirin 81 Mg Chew 81 Mg CHEW DAILY 02/28/17 Reported Simvastatin 20 Mg Tab 20 Mg PO HS 02/28/17 Reported Levothyroxine (Levothyroxine Sodium) 50 Mcg Tab 50 Mcg PO DAILY 02/28/17 Reported Losartan (Losartan Potassium) 25 Mg Tab 12.5 Mg PO DAILY 02/28/17 Reported ASSESSMENT/PLAN: Seen and examined with nurse. No bleeding, no abdominal pain. S/P egd with bleeding Duodenal ulcer. Some drop in H/H earlier today. Advnce diet ,monitor labs. If stble dc home tomorrow on Protonix once daily x 4 weeks. It was a pleasure seeing Serenity Coughlin. Thank you for this consult. Entered by: Oskar Boudreaux MD Mar 02, 2017 16:09
[2017-03-02] MEDS: PRAVASTATIN SOD 40 MG TAB PO SCH (19:43)
[2017-03-02] MEDS: ATORVASTATIN 40 MG TAB PO SCH (19:44)
[2017-03-02 20:25] LABS: HEMATOCRIT 24.4 % (35.0-46.0)
[2017-03-03] VITALS: BP 107/56; PULSE 90; RESP 20; TEMP 97.7; O2SAT 97
[2017-03-03 04:00] VITALS: BP 101/57; PULSE 88; RESP 20; TEMP 97.1; O2SAT 99
[2017-03-03 06:35] LABS: HEMATOCRIT 24.6 % (35.0-46.0)
--- NOTE | 2017-03-03 07:24 | EKG ---
Date Performed: 03/01/2017 Time Performed: 13:31:06 PTAGE: 66 years EKG: Sinus rhythm WITH SHORT MS INTERVAL Compared to previous tracing MS interval slightly shorter, otherwise no signi ficant change BORDERLINE ECG PREVIOUS TRACING : 10/19/2014 09.54 DOCTOR: Brian Vasques Interpretating Date/Time 03/03/2017 07:24:03
[2017-03-03 08:00] VITALS: BP 123/69; PULSE 75; RESP 14; TEMP 97.2; O2SAT 100
[2017-03-03] MEDS: LEVOTHYROXINE SODIUM 50 MCG TAB PO SCH (08:54)
[2017-03-03] MEDS: LOSARTAN 25 MG TAB PO SCH (08:55)
[2017-03-03] MEDS: PANTOPRAZOLE SODIUM 40 MG VIAL IV PUSH SCH (08:56)
[2017-03-03] MEDS: SODIUM CHLORIDE 0.9% FLUSH 10 ML FLUSH IV FLUSH SCH (08:56)
[2017-03-03 12:00] VITALS: BP 113/62; PULSE 86; RESP 14; TEMP 96.7; O2SAT 100
[2017-03-03 14:40] LABS: HEMATOCRIT 26.2 % (35.0-46.0)
--- NOTE | 2017-03-03 16:23 | HHI.DS ---
Discharge Summary Admission Date Feb 28, 2017 at 17:54 Discharge Date: Mar 03, 2017 Admitting Diagnosis Hematemesis; Abdominal Pain (1) Hematemesis ICD Code: K92.0 - Hematemesis Diagnosis: Principal Status: Acute Procedures none Brief History - From Admission Written by Alvarado Elizalde, acting as scribe for Dr. Medina on 02/28/17 at 18:45. 66-year-old female with known history of hypertension, hyperlipidemia, history CVA 2, hypothyroidism who presented to the hospital because acute hematemesis. Patient was in her normal state of health until this morning when she had a severe headache, at 1045 she took an aspirin at that time and then shortly after that she started vomiting at 11 AM. When she vomited they noticed that there was a significant amount of blood in the vomitus. She had a total of 3 episodes of hematemesis. Patient indicates that she has never had this before. She did not take any medication to make it better. She states that she did develop some abdominal pain prior to the vomiting which was 6/10 on a pain scale. Pain partially subsided after emesis. At the present time she has very little abdominal pain. She did have some fatigue and diaphoresis. However she denied any fever, chest pain, shortness of breath, palpitations, she has had normal bowel movements every other day. She does not know the color of it because she does not look. Patient had evaluation done emergency department. Hemoglobin is 12.2. Mild leukocytosis. CT scan was unremarkable for any acute abdominal or pelvic process. Because of hematemesis and was recommended by the ER physician the patient be observed for further evaluation management CBC/BMP: 03/03/17 1415 03/01/17 0510 Significant Findings Laboratory Tests Test 02/28/17 16:45 03/01/17 05:10 03/02/17 05:48 03/02/17 12:20 Red Blood Count 3.34 MIL/MM3 (4.00-5.30) 2.68 MIL/MM3 (4.00-5.30) Hemoglobin 10.3 GM/DL (11.6-15.3) 7.9 GM/DL (11.6-15.3) 8.9 GM/DL (11.6-15.3) Hematocrit 30.8 % (35.0-46.0) 24.6 % (35.0-46.0) Blood Urea Nitrogen 29 MG/DL (7-18) Total Protein 5.6 GM/DL (6.4-8.2) Albumin 3.0 GM/DL (3.4-5.0) Calcium Level 8.1 MG/DL (8.5-10.1) Aspartate Amino Transf (AST/SGOT) 14 U/L (15-37) Test 03/02/17 20:10 03/03/17 06:08 03/03/17 14:15 Hemoglobin 8.4 GM/DL (11.6-15.3) 8.1 GM/DL (11.6-15.3) 8.8 GM/DL (11.6-15.3) Hematocrit 24.4 % (35.0-46.0) 24.6 % (35.0-46.0) 26.2 % (35.0-46.0) Hospital Course Patient was admitted, started on IV Protonix. Gastroenterology was consulted, performed an EGD which showed a bleeding duodenal ulcer which was cauterized. Patient was observed overnight afterwards, tolerated by mouth intake well, had no further clinical bleeding and her hemoglobin remained steady. Patient had met maximal benefit from hospitalization and is clinically stable for discharge. Patient was explained in her own [place] tongue as well as to her family members that she needs to follow-up with her primary care physician regarding chronic renal impairment as well as monitoring her blood counts. She was also counseled on refraining from nonsteroidal anti-inflammatory drugs. Pt Condition on Discharge: Stable Discharge Disposition: Discharge Home Discharge Time: > 30 minutes Discharge Instructions Follow up Referrals: Gastroenterology - 1 Week with Oskar Burleson MD PCP Follow-up - 1 Week New Medications: Atorvastatin (Atorvastatin) 40 Mg Tab 40 MG PO HS for stroke care, #30 TAB Continued Medications: Levothyroxine (Levothyroxine) 50 Mcg Tab 50 MCG PO DAILY for Thyroid, #30 TAB 0 Refills Losartan (Losartan) 25 Mg Tab 12.5 MG PO DAILY for Blood Pressure Management, #15 TAB 0 Refills Discontinued Medications: Aspirin (Aspirin) 81 Mg Chew 81 MG CHEW DAILY, TAB 0 Refills Simvastatin (Simvastatin) 20 Mg Tab 20 MG PO HS for Cholesterol Management, #30 TAB 0 Refills Po Medina MD Mar 03, 2017 16:23
--- NOTE | 2017-03-03 16:25 | HHI.DCPOC ---
Discharge Care Plan Diagnosis: (1) Duodenal ulcer (2) Hematemesis Additional Problems No adria ninguno NSAID medicamentos incluyendo Aspirin, Aleve, naproxen, Naprosyn , Advil, ibuprofen, Goody powders, BC powders, [place]. Do not take any NSAIDs including but not limited to Aspirin, Aleve, naproxen, Naprosyn, Advil, ibuprofen, Goody powders, BC powders, and [place]. Goals to Promote Your Health * To prevent worsening of your condition and complications * To maintain your health at the optimal level Directions to Meet Your Goals Take your medications as prescribed Follow your dietary instruction Follow activity as directed Keep your appointments as scheduled Take your immunizations and boosters as scheduled If your symptoms worsen call your PCP, if no PCP go to Urgent Care Center or Emergency Room Smoking is Dangerous to Your Health. Avoid second hand smoke Call the 24-hour hour crisis hotline for domestic abuse at Po Medina MD Mar 03, 2017 16:25
== END 2017-03-03 18:05 | disposition home or self-care (01) | DRG 379 ==
LOC: PHED 15:48 → OBSVTOIN 17:54 → PHEDA 17:54 → PH3B 21:39
PROVIDERS: ADMIT Hospitalist; ATTEND Hospitalist
PROC: 3E0G8GC Introduction of Other Therapeutic Substance into Upper GI, Via Natural or Artificial Opening Endoscopic (ICD-10-PCS; 2017-03-01)
PROC: 0W3P8ZZ Control Bleeding in Gastrointestinal Tract, Via Natural or Artificial Opening Endoscopic (ICD-10-PCS; principal; 2017-03-01 14:06)
DX: K26.4 Chronic or unspecified duodenal ulcer with hemorrhage (principal); I10 Essential (primary) hypertension; K92.0 Hematemesis; Z86.73 Personal history of transient ischemic attack (TIA), and cerebral infarction without residual deficits; E78.5 Hyperlipidemia, unspecified; E03.9 Hypothyroidism, unspecified; Z87.891 Personal history of nicotine dependence
CPT/HCPCS: 74177; 76937; 80053; 81001; 83690; 85014; 85018; 85025; 85027; 85610; 85730; 86850; 86900; 86901; 93005; C9113; J0171; J2405; J7030; Q9967